=== PATIENT | female | born 1950 | race Caucasian/White ===

== ENCOUNTER 2018-03-17 08:00 | Inpatient (IN) | payer OTHER ==
[~2018-03-17] VITALS: Ht 160 cm; Wt 86.2 kg
[2018-03-17] MEDS ORDERED: COLACE100 MG PO (10:01)
[2018-03-17] MEDS ORDERED: OSTERA TABLET1 EACH PO (10:01)
[2018-03-17] MEDS ORDERED: PROSOM PO (10:02)
[2018-03-17] MEDS ORDERED: TOPROL XL25 M1 PO (10:02)
[2018-03-17] MEDS ORDERED: PRISTIQ ER50 MG PO (10:03)
[2018-03-17] MEDS ORDERED: ZYRTEC10 M3 PO (10:03)
[2018-03-17] MEDS ORDERED: ULTRACET PO (10:03)
[2018-03-17] MEDS ORDERED: PRILOSEC2.5 MG PO (10:04)
[2018-03-17] MEDS ORDERED: TORADOL60 MG (10:04)
[2018-04-01] MEDS ORDERED: ZYRTEC10 M3 PO (07:34)
[2018-04-01] MEDS ORDERED: MIRALAX17 GM PO (07:34)
[2018-04-01] MEDS ORDERED: ULTRACET PO (07:34)
[2018-04-01] MEDS ORDERED: AMOX1TAB5 PO (07:34)
== END 2018-04-01 08:56 | disposition home or self-care (01) | DRG 355 ==
LOC: SURH 03-26 07:00 → O/R 03-26 08:03 → SURG 03-26 08:03 → MEDI 03-26 22:07 → SURG 04-01 08:56
PROVIDERS: Surgery
PROC: 0WJF4ZZ Inspection of Abdominal Wall, Percutaneous Endoscopic Approach (ICD-10-PCS; 2018-03-26)
PROC: 0JX80ZZ Transfer Abdomen Subcutaneous Tissue and Fascia, Open Approach (ICD-10-PCS; 2018-03-26)
PROC: 3E0F7GC Introduction of Other Therapeutic Substance into Respiratory Tract, Via Natural or Artificial Opening (ICD-10-PCS; 2018-03-26)
PROC: 0WUF0JZ Supplement Abdominal Wall with Synthetic Substitute, Open Approach (ICD-10-PCS; principal; 2018-03-26 07:00)
PROC: 4A12X4Z Monitoring of Cardiac Electrical Activity, External Approach (ICD-10-PCS; 2018-03-27)
DX: K43.0 Incisional hernia with obstruction, without gangrene (principal); K42.0 Umbilical hernia with obstruction, without gangrene; G47.33 Obstructive sleep apnea (adult) (pediatric); J45.998 Other asthma; I10 Essential (primary) hypertension; K21.9 Gastro-esophageal reflux disease without esophagitis; M79.7 Fibromyalgia